=== PATIENT | male | born 1945 | race Caucasian/White ===

== ENCOUNTER 2022-09-27 08:32 | Outpatient (CLI) | payer MEDICARE, OTHER, SELFPAY | END 2022-09-27 08:33 | disposition home or self-care (01) | PROVIDERS: PCP Nurse Practitioner Family; Visit Provider Nurse Practitioner Family | DX: R53.83 Other fatigue (principal); E78.5 Hyperlipidemia, unspecified; Z12.5 Encounter for screening for malignant neoplasm of prostate; Z51.81 Encounter for therapeutic drug level monitoring | CPT/HCPCS: 80053; 80061; 84153; 85025 ==

== ENCOUNTER 2023-08-16 13:36 | Outpatient (CLI) | payer MEDICARE, OTHER, SELFPAY | END 2023-08-16 13:37 | disposition home or self-care (01) | LOC: KYNREF 13:38 | PROVIDERS: PCP Nurse Practitioner Family; Visit Provider Nurse Practitioner Family | DX: E87.6 Hypokalemia (principal); R79.89 Other specified abnormal findings of blood chemistry | CPT/HCPCS: 80048 ==

== ENCOUNTER 2023-10-03 08:50 | Outpatient (CLI) | payer MEDICARE, OTHER, SELFPAY | END 2023-10-03 08:51 | disposition home or self-care (01) | PROVIDERS: PCP Nurse Practitioner Family; Visit Provider Nurse Practitioner Family | DX: Z00.00 Encounter for general adult medical examination without abnormal findings (principal); E78.5 Hyperlipidemia, unspecified; Z13.0 Encounter for screening for diseases of the blood and blood-forming organs and certain disorders involving the immune mechanism; Z13.228 Encounter for screening for other metabolic disorders | CPT/HCPCS: 80053; 80061; 85025 ==

== ENCOUNTER 2023-10-16 09:55 | Emergency (ER) | payer MEDICARE, OTHER, SELFPAY ==
[2023-10-16 10:00] VITALS: BP 147/79; PULSE 73; RESP 16; TEMP 36.2; O2SAT 97; BMI 26.4
--- NOTE | 2023-10-16 10:39 | ED_ITS ---
HPI - Male Genitourinary General Time Seen by Provider: 10:39 Date Seen: 10/16/23 Chief complaint: Urogenital Problems, Male Stated complaint: Catheter concerns Time Seen by Provider: 10/16/23 10:38 Source: patient and RN notes reviewed Mode of arrival: ambulatory Limitations: no limitations History of Present Illness HPI Narrative: This 78-year-old male is coming in with concern of some blood that he noted in his underwear as well in the urine. Has had an indwelling Mitchell catheter since July due to prostate hypertrophy and urinary retention. He has an appointment with Urology on November 08 to go over his options. He is not on any blood thinners, no chronic NSAID or aspirin use per report. He has had no abdominal pain, no fevers chills, is not feeling ill. Denies any definite trauma but does note before there was bleeding, did have an itch at the tip of his penis and was scratching it. He also notes the urologist gave him a sat of to put on the end of the penis after the catheter was placed. He has not used that. Related Data Home Medications ?Medication ?Instructions ?Recorded ?Confirmed calcium carbonate 500 mg PO QDAY 10/03/23 10/03/23 Previous Rx's ?Medication ?Instructions ?Recorded atorvastatin 10 mg tablet 10 mg PO QDAY 90 days #90 tabs 10/03/23 cephalexin 500 mg tablet 500 mg PO TID #21 tabs 10/16/23 Allergies Allergy/AdvReac Type Severity Reaction Status Date / Time No Known Allergies Allergy Unknown Verified 10/03/23 08:26 Review of Systems Narrative: As per HPI. PFSH PFSH Medical History History of acute renal failure ?Z87.448 - Personal history of other diseases of urinary system (ICD-10) Umbilical hernia ?K42.9 - Umbilical hernia without obstruction or gangrene (ICD-10) Encounter for screening for malignant neoplasm of colon (11/13/14) ?Z12.11 - Encounter for screening for malignant neoplasm of colon (ICD-10) Surgical History History of partial colectomy ?Z90.49 - Acquired absence of other specified parts of digestive tract (ICD- 10) H/O cystoscopy ?Z98.890 - Other specified postprocedural states (ICD-10) History of umbilical hernia repair ?Z98.890 - Other specified postprocedural states (ICD-10) ?Z87.19 - Personal history of other diseases of the digestive system (ICD-10) History of total knee replacement ?Z96.659 - Presence of unspecified artificial knee joint (ICD-10) History of nasal septoplasty ?Z98.890 - Other specified postprocedural states (ICD-10) History of arthroscopy of shoulder ?Z98.890 - Other specified postprocedural states (ICD-10) Family History Father Diabetes Brother Lung cancer Prostate cancer Social History Narrative: - 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 2 children. [place] in [place], [place]. No alcohol. No illicit drug use. Non-smoker. Smoking Status: Never smoker Little interest or pleasure in doing things: not at all Feeling down, depressed, or hopeless: not at all Exam Const: Vital Signs, click to edit/add: Vital Signs - 24 hr 10/16/23 10:00 Temperature 97.1 F L Pulse Rate [Pulse Oximeter] 73 Respiratory Rate 16 Blood Pressure [Ri ght Upper Arm] 147/79 H Pulse Oximetry 97 Oxygen Delivery Me thod Room Air This 78-year-old male is alert, interactive, no apparent distress. Breathing easily on room air, speech normal. Lungs clear. CV regular rate and rhythm. Abdomen is soft, nontender, nondistended, no organomegaly. He has a little bit of blood along the catheter as it enters the penis. No active bleeding or traumatic change seen. Nursing staff placed a new bag on the catheter to collect a clean urine. This looks clear, no visible blood or clots. Will await urinalysis. Documenting provider has reviewed patient's vital signs: yes Course Course ED Course: Reviewed with patient and his daughter that is present that we need to await urinalysis. Discussed with chronic indwelling catheters the bleeding can come from urinary tract infection or could be mild traumatic change. In his situation I favor some mild irritation and trauma but we will await urinalysis. Reevaluation(s) Time of Reevaluation #1: 12:30 Reevaluation #1: Reviewed with patient that the urinalysis is concerning with nitrite positivity. Will initiate antibiotics. They understand urine culture will be done. Vital Signs Vital signs: Initial Vital Signs Temperature 97.1 F L 10/16/23 10:00 Temperature Source Temporal Artery Scan 10/16/23 10:00 Pulse Rate 73 10/16/23 10:00 Respiratory Rate 16 10/16/23 10:00 Blood Pressure 147/79 H 10/16/23 10:00 Blood Pressure Mean 101 10/16/23 10:00 Blood Pressure Position Sitting 10/16/23 10:00 Pulse Oximetry 97 10/16/23 10:00 Oxygen Delivery Method Room Air 10/16/23 10:00 Vital Signs Temperature 97.1 F L 10/16/23 10:00 Pulse Rate 73 10/16/23 10:00 Respiratory Rate 16 10/16/23 10:00 Blood Pressure 147/79 H 10/16/23 10:00 Pulse Oximetry 97 10/16/23 10:00 Oxygen Delivery Method Room Air 10/16/23 10:00 Temperature 97.1 F L 10/16/23 10:00 Pulse Rate 73 10/16/23 10:00 Respiratory Rate 16 10/16/23 10:00 Blood Pressure 147/79 H 10/16/23 10:00 Pulse Oximetry 97 10/16/23 10:00 Oxygen Delivery Method Room Air 10/16/23 10:00 MDM - Male Genitourinary Lab Data Attestation: I reviewed the patient's lab results. Labs: Lab Results 10/16/23 Range/Units 10:40 Urine Color Yellow (Yellow) Urine Appearance Cloudy A (Clear) Urine pH 6.0 (5.0-8.5) Ur Specific [place] 1.025 (1.000-1.030) Urine Protein 1+ A (Negative) Urine Glucose (UA) Negative (Negative) Urine Ketones Negative (Negative) Urine Blood 3+ A (Negative) Urine Nitrite Positive A (Negative) Urine Bilirubin Negative (Negative) Urine Urobilinogen 0.2 (0.2-1.0) Ur Leukocyte Esterase 3+ A (Negative) Urine RBC 50-100 A (0-2) Urine WBC 10-25 A (0-5) Urine WBC Clumps Few A (None) Ur Squamous Epith Cells Few (None-Few) Urine Bacteria Moderate A (None) Discharge Plan Discharge Clinical Impression: Urinary tract infection associated with indwelling urethral catheter Patient Disposition: Home, Self-Care Condition: Stable Instructions: Urinary Tract Infection in Men (ED) Additional Instructions: Start oral antibiotic today and take as prescribed. We will contact you if the urine culture should require any change in antibiotics. If at any point you feel you are worsening, develops fever or are becoming ill, please seek re- evaluation. Activity Level: Activity as Tolerated Prescriptions: New cephalexin 500 mg tablet 500 mg PO TID Qty: 21 0RF No Action calcium carbonate 500 mg calcium (1,250 mg) tablet 500 mg PO QDAY atorvastatin 10 mg tablet 10 mg PO QDAY 90 Days Qty: 90 3RF Follow Up/Referrals: Radha Anne, LAWNMOWER MECHANIC, AGRICULTURAL EDUCATION PROFESSOR [Primary Care Provider] - Stand Alone Forms: [employer] Info Instructions
[2023-10-16 10:48] LABS: Appearance Urine Cloudy (Clear); Bilirubin Urine Negative (Negative); Blood Urine 3+ (Negative); Color Urine Yellow (Yellow); Glucose Urine Negative (Negative); Ketones Urine Negative (Negative); Leukocyte Esterase Urine 3+ (Negative); Nitrite Urine Positive (Negative); Protein Urine 1+ (Negative); Specific Gravity Urine 1.025 (1.000-1.030); Urobilinogen Urine 0.2 (0.2-1.0)
[2023-10-16 10:57] LABS: RBC Urine 50-100 (0-2)
[2023-10-16 10:58] LABS: Bacteria Urine Moderate; Squamous Epithelial Cell Urine Few (None-Few); WBC Clumps Urine Few
--- NOTE | 2023-10-20 08:50 | ED_ITS ---
HPI - General Adult General Chief complaint: Urogenital Problems, Male Stated complaint: Catheter concerns Time Seen by Provider: 10/16/23 10:38 Source: patient and RN notes reviewed Mode of arrival: ambulatory Limitations: no limitations History of Present Illness HPI narrative: ER addendum 10/20/2023. Patient recently seen with hematuria in the setting of an indwelling Mitchell catheter. Diagnosed with UTI during his ER visit and put on cephalexin. Urine culture came back this morning growing Citrobacter freundii eye and Staph aureus. Staph aureus is pansensitive. Citrobacter is resistant to multiple antibiotics, including 1st generation cephalosporins. I contacted the patient by phone. He says that he is actually doing better and the visible blood is already clearing. However with the resistant strain of Citrobacter I do think we need changes antibiotics. Will have him stop the cephalexin and switched to Macrobid 100 mg p.o. b.i.d. for 7 days. Prescription sent to his pharmacy at [facility] in [place]. He will pick it up and start the new antibiotic this morning. He says overall is doing well. He understands the plan. He will stop cephalexin and switched to Macrobid this morning. Encouraged the patient to call back with any problems or questions. Related Data Home Medications ?Medication ?Instructions ?Recorded ?Confirmed calcium carbonate 500 mg PO QDAY 10/03/23 10/03/23 Previous Rx's ?Medication ?Instructions ?Recorded atorvastatin 10 mg tablet 10 mg PO QDAY 90 days #90 tabs 10/03/23 cephalexin 500 mg tablet 500 mg PO TID #21 tabs 10/16/23 nitrofurantoin 100 mg PO BID #14 caps 10/20/23 monohydrate/macrocrystals 100 mg capsule (Macrobid) Allergies Allergy/AdvReac Type Severity Reaction Status Date / Time No Known Allergies Allergy Unknown Verified 10/03/23 08:26 [facility] Medical History History of acute renal failure ?Z87.448 - Personal history of other diseases of urinary system (ICD-10) Umbilical hernia ?K42.9 - Umbilical hernia without obstruction or gangrene (ICD-10) Encounter for screening for malignant neoplasm of colon (11/13/14) ?Z12.11 - Encounter for screening for malignant neoplasm of colon (ICD-10) Surgical History History of partial colectomy ?Z90.49 - Acquired absence of other specified parts of digestive tract (ICD- 10) H/O cystoscopy ?Z98.890 - Other specified postprocedural states (ICD-10) History of umbilical hernia repair ?Z98.890 - Other specified postprocedural states (ICD-10) ?Z87.19 - Personal history of other diseases of the digestive system (ICD-10) History of total knee replacement ?Z96.659 - Presence of unspecified artificial knee joint (ICD-10) History of nasal septoplasty ?Z98.890 - Other specified postprocedural states (ICD-10) History of arthroscopy of shoulder ?Z98.890 - Other specified postprocedural states (ICD-10) Family History Father Diabetes Brother Lung cancer Prostate cancer Social History Narrative: - 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 2 children. [place] in [place], [place]. No alcohol. No illicit drug use. Non-smoker. Smoking Status: Never smoker Little interest or pleasure in doing things: not at all Feeling down, depressed, or hopeless: not at all Course Vital Signs Vital signs: Initial Vital Signs Temperature 97.1 F L 10/16/23 10:00 Temperature Source Temporal Artery Scan 10/16/23 10:00 Pulse Rate 73 10/16/23 10:00 Respiratory Rate 16 10/16/23 10:00 Blood Pressure 147/79 H 10/16/23 10:00 Blood Pressure Mean 101 10/16/23 10:00 Blood Pressure Position Sitting 10/16/23 10:00 Pulse Oximetry 97 10/16/23 10:00 Oxygen Delivery Method Room Air 10/16/23 10:00 Vital Signs Temperature 97.1 F L 10/16/23 10:00 Pulse Rate 73 10/16/23 10:00 Respiratory Rate 16 10/16/23 10:00 Blood Pressure 147/79 H 10/16/23 10:00 Pulse Oximetry 97 10/16/23 10:00 Oxygen Delivery Method Room Air 10/16/23 10:00 Temperature 97.1 F L 10/16/23 10:00 Pulse Rate 73 10/16/23 10:00 Respiratory Rate 16 10/16/23 10:00 Blood Pressure 147/79 H 10/16/23 10:00 Pulse Oximetry 97 10/16/23 10:00 Oxygen Delivery Method Room Air 10/16/23 10:00 Medical Decision Making Lab Data Labs: Lab Results 10/16/23 Range/Units 10:40 Urine Color Yellow (Yellow) Urine Appearance Cloudy A (Clear) Urine pH 6.0 (5.0-8.5) Ur Specific [place] 1.025 (1.000-1.030) Urine Protein 1+ A (Negative) Urine Glucose (UA) Negative (Negative) Urine Ketones Negative (Negative) Urine Blood 3+ A (Negative) Urine Nitrite Positive A (Negative) Urine Bilirubin Negative (Negative) Urine Urobilinogen 0.2 (0.2-1.0) Ur Leukocyte Esterase 3+ A (Negative) Urine RBC 50-100 A (0-2) Urine WBC 10-25 A (0-5) Urine WBC Clumps Few A (None) Ur Squamous Epith Cells Few (None-Few) Urine Bacteria Moderate A (None) Discharge Plan Discharge Clinical Impression: Urinary tract infection associated with indwelling urethral catheter Qualifiers: Encounter type: initial encounter Qualified Code(s): T83.511A - Infection and inflammatory reaction due to indwelling urethral catheter, initial encounter Patient Disposition: Home, Self-Care Condition: Stable Instructions: Urinary Tract Infection in Men (ED) Additional Instructions: Start oral antibiotic today and take as prescribed. We will contact you if the urine culture should require any change in antibiotics. If at any point you feel you are worsening, develops fever or are becoming ill, please seek re- evaluation. Activity Level: Activity as Tolerated Prescriptions: New cephalexin 500 mg tablet 500 mg PO TID Qty: 21 0RF nitrofurantoin monohyd/m-cryst [Macrobid] 100 mg capsule 100 mg PO BID Qty: 14 0RF Rx Instructions: must administer with a meal/food No Action calcium carbonate 500 mg calcium (1,250 mg) tablet 500 mg PO QDAY atorvastatin 10 mg tablet 10 mg PO QDAY 90 Days Qty: 90 3RF Follow Up/Referrals: Radha Anne, APPLICATION SUPPORT INTERN, FLASH DESIGNER [Primary Care Provider] - Stand Alone Forms: [employer] Info Instructions
== END 2023-10-16 12:41 | disposition home or self-care (01) ==
PROVIDERS: Emergency Provider Family Medicine; PCP Nurse Practitioner Family
DX: N39.0 Urinary tract infection, site not specified (principal); Z46.6 Encounter for fitting and adjustment of urinary device
CPT/HCPCS: 81001; 87086; 87186; 99281; 99283

== ENCOUNTER 2024-01-17 08:31 | Outpatient (CLI) | payer MEDICARE, OTHER, SELFPAY | END 2024-01-17 08:32 | disposition home or self-care (01) | PROVIDERS: PCP Nurse Practitioner Family; Visit Provider Nurse Practitioner Family | DX: M19.90 Unspecified osteoarthritis, unspecified site (principal); Z13.0 Encounter for screening for diseases of the blood and blood-forming organs and certain disorders involving the immune mechanism | CPT/HCPCS: 80053; 85025 ==

== ENCOUNTER 2024-01-27 07:26 | Outpatient (CLI) | payer MEDICARE, OTHER, SELFPAY | END 2024-01-27 07:27 | disposition home or self-care (01) | LOC: RAD 07:27 | PROVIDERS: PCP Nurse Practitioner Family; Visit Provider Nurse Practitioner Family | DX: R94.31 Abnormal electrocardiogram [ECG] [EKG] (principal) | CPT/HCPCS: 93306 ==

== ENCOUNTER 2024-07-16 09:37 | Outpatient (CLI) | payer MEDICARE, OTHER, SELFPAY | END 2024-07-16 09:38 | disposition home or self-care (01) | PROVIDERS: PCP Nurse Practitioner Family; Visit Provider Family Medicine | DX: Z01.818 Encounter for other preprocedural examination (principal); E78.5 Hyperlipidemia, unspecified; Z12.5 Encounter for screening for malignant neoplasm of prostate | CPT/HCPCS: 80048; 80061; G0103 ==